=== PATIENT | female | born 1960 | race Caucasian/White ===

== ENCOUNTER 2017-02-26 21:28 | Emergency (ER) | payer MEDICARE ==
[2017-02-26 21:47] VITALS: O2SAT 97
[2017-02-26] MEDS ORDERED: PRED-FORTE 1% OPHTHALMIC OP ONE (21:47)
[2017-02-26] MEDS ORDERED: Erythromycin 3.5 GM OPHTH. OP ONE (21:48)
[2017-02-26] MEDS ORDERED: Erythromycin 1 GM ONE (22:00)
--- NOTE | 2017-02-26 22:02 | ERPHSYRPT ---
- History of Present Illness Time Seen by Provider: 02/26/17 21:55 Exam Limitations: no limitations Patient Subjective Stated Complaint: pt states she had cataract surgery on her rt eye on 01/19/17 and lt eye on 01/26/17. states she has recently had pain in her lt eye. states she had a follow up appt with dr dykes, her surgeon on wednesday and he told her the implants were in place and looked good. Triage Nursing Assessment: pt and oriented, asn Physician History: 56 y/o female s/p cataract surgery comes to the ER with complaints of left eye irritation, redness and discharge for the last few days. Pt started taking oflaxicin but has not had much relief. Pt had cataract surgery of the left eye on 01/26 and had F/U with her opthalmologist who said everything was fine. Timing/Duration: day(s) Location: left eye Severity: mild Apparent Injury: no Associated Symptoms: burning, itching, redness Visual Assistive Devices: None Trauma: No Welding Arc/Tanning Bed Exposure: No Allergies/Adverse Reactions: codeine Adverse Reaction (Verified 02/26/17 21:48) Nausea and Vomiting Home Medications: Furosemide [Lasix] 60 mg PO DAILY 02/26/17 [History] Metoprolol Tartrate 25 mg [Lopressor 25MG Tab] 25 mg PO BID 02/26/17 [ History] Ofloxacin Ophth 5 ml [Ocuflox OPHTHALMIC 5 ML] 0 ml OP QID 02/26/17 [ History] Potassium Chloride 10 Meq Tab* [Klor Con 10 MEQ] 10 meq PO DAILY 02/26/17 [ History] Pregabalin [Lyrica 150Mg] 300 mg PO BID 02/26/17 [History] Hx Tetanus, Diphtheria Vaccination/Date Given: Yes Hx Influenza Vaccination/Date Given: No Hx Pneumococcal Vaccination/Date Given: No Immunizations Up to Date: Yes - Review of Systems Constitutional: No Fever, No Chills Eyes: Discharge, Eye Redness, Vision Changes, No Foreign Body Sensation Ears, Nose, & Throat: No Symptoms Respiratory: No Cough, No Dyspnea Cardiac: No Chest Pain, No Edema, No Syncope Abdominal/Gastrointestinal: No Abdominal Pain, No Nausea, No Vomiting, No Diarrhea Genitourinary Symptoms: No Dysuria Musculoskeletal: No Back Pain, No Neck Pain Skin: No Rash Neurological: No Dizziness, No Focal Weakness, No Sensory Changes Psychological: No Symptoms Endocrine: No Symptoms All Other Systems: Reviewed and Negative - Past Medical History Pertinent Past Medical History: No - Past Surgical History Past Surgical History: Yes Musculoskeletal: Orthopedic Surgery Other Surgical History: rt wrist, back surgery - Social History Smoking Status: Current every day smoker How long have you smoked: 38 Exposure to second hand smoke: Yes Drug Use: none Patient Lives Alone: No - Nursing Vital Signs Nursing Vital Signs: Initial Vital Signs Temperature 98.0 F 02/26/17 21:34 Pulse Rate 77 02/26/17 21:34 Respiratory Rate 18 02/26/17 21:34 Blood Pressure 163/85 02/26/17 21:34 O2 Sat by Pulse Oximetry 97 02/26/17 21:34 Pain Scale Pain Intensity 8 - Physical Exam General Appearance: no apparent distress Vision Acuity Degree Evaluation Phase: Corrected Vision Acuity Right Eye: 20/20 Vision Acuity Left Eye: 20/20 Eye Exam: left eye: erythema, eyelid inflammation, bilateral eye: PERRL, EOMI Ears, Nose, Throat Exam: normal ENT inspection Neck Exam: normal inspection Respiratory Exam: normal breath sounds Cardiovascular Exam: regular rate/rhythm Gastrointestinal Exam: soft, normal bowel sounds Neurologic: alert, oriented x 3 Skin Exam: normal color SpO2 Interpretation: normal SpO2: 97 Oxygen Delivery: Room Air Ordered Tests: Medication Summary Discontinued Medications Generic Name Dose Route Start Last Admin Trade Name Freq PRN Reason Stop Dose Admin Erythromycin 3.5 gm 02/26/17 21:48 Erythromycin 3.5 Gm Ophth. OP 02/26/17 21:49 STAT ONE Prednisolone Acetate 1 ml 02/26/17 21:47 Pred-Forte 1% Ophthalmic OP 02/26/17 21:48 ONCE ONE - Progress Progress: improved Progress Note: 02/26/17 21:58 Pt will be given erythromycin ointment and Pred-forte for conjunctivitis. I advised the patient to F/U with her opthalmologist next week. - Departure Time of Disposition: 21:59 Departure Disposition: Home Clinical Impression: Conjunctivitis of left eye Qualifiers: Conjunctivitis type: other Qualified Code(s): H10.89 - Other conjunctivitis Condition: Stable Critical Care Time: No Referrals: ISADORA LUZ SET UP PERSON [Primary Care Provider] - Instructions: Conjunctivitis Additional Instructions: Follow up with your eye doctor next week for any additional recommendations. Prescriptions: Erythromycin Base 3.5 gm [Erythromycin 3.5 GM OPHTH.] 3.5 gm OP BID #1 tube Prednisolone Acetate [Pred Forte] 5 ml OP QID #1 drops.susp
[2017-02-26 22:37] VITALS: BP 134/70; PULSE 70
== END 2017-02-26 22:37 | disposition home or self-care (01) ==
LOC: ED 21:28
DX: H10.89 Other conjunctivitis (principal); Z98.890 Other specified postprocedural states
CPT/HCPCS: 99283; 99284; A9270-GY